=== PATIENT | female | born 1980 | race Caucasian/White ===

== ENCOUNTER 2018-03-31 05:00 | Emergency (ER) | payer OTHER ==
[~2018-03-31] VITALS: Ht 165.1 cm; Wt 55.9 kg
--- NOTE | 2018-03-31 05:08 | NUR ---
PT TAKEN TO BED 12
[2018-03-31 05:13] VITALS: BP 113/80
--- NOTE | 2018-03-31 05:15 | NUR ---
Dr. Caicedo evaluating patient at bedside.
--- NOTE | 2018-03-31 05:30 | NUR ---
PT TO ED WITH C/O VAGINAL BLEEDING AND CRAMPING X 1 DAY. BLEEDING CONTROLLED AT THIS TIME. PT HAS + URINE HCG, . APPROX 7WEEKS GESTATION. NO S/S OF DISTRESS AT THIS TIME. PT PLACED INTO BED, PENDING MD SALAZAR. PMH---DENIES RX---DENIES
[2018-03-31 05:53] LABS: APPEARANCE,URINE SLIGHTLY HAZY (CLEAR); BILIRUBIN,URINE NEGATIVE (NEGATIVE); BLOOD, URINE 2+ (NEGATIVE); COLOR,URINE YELLOW (YELLOW); LEUKOCYTE ESTERASE ,URINE NEGATIVE (NEGATIVE); NITRITE, URINE NEGATIVE (NEGATIVE); UGLUCOSE NEGATIVE (NEGATIVE)
[2018-03-31 05:54] LABS: RBC,URINE NONE SEEN /HPF (0-5); WBC,URINE 0-5 (RARE) /HPF (0-5)
--- NOTE | 2018-03-31 05:59 | NUR ---
PT TAKEN TO ULTRASOUND
[2018-03-31 06:00] LABS: BASOPHILS # (AUTO) 0.1 K/uL (0.00-0.22); BASOPHILS % (AUTO) 0.5 % (0.0-2.0); EOSINOPHILS # (AUTO) 0.2 K/uL (0-0.4); EOSINOPHILS % (AUTO) 1.7 % (0.0-4.0); HEMATOCRIT 38.9 % (36-48); LYMPHOCYTES # (AUTO) 2.8 K/uL (2.5-16.5); LYMPHOCYTES % (AUTO) 28.7 % (20.5-51.1); MEAN CORPUSCULAR HEMOGLOBIN 32 pg (27-31); MEAN CORPUSCULAR HGB CONC 33 g/dL (33-37); MEAN CORPUSCULAR VOLUME 94.7 fL (80-94); MONOCYTES # (AUTO) 0.9 K/uL (0.8-1.0); MONOCYTES % (AUTO) 9.7 % (1.7-9.3); NEUTROPHILS # (AUTO) 5.8 K/uL (1.8-7.7); NEUTROPHILS % (AUTO) 59.4 % (42.2-75.2); PLATELET COUNT (AUTO) 340 K/uL (140-450); RED BLOOD CELL COUNT(AUTO) 4.11 MIL/uL (4.20-5.40); RED CELL DISTRIBUTION WIDTH 13.2 % (11.6-13.7); WHITE BLOOD COUNT (AUTO) 9.7 K/uL (4.8-10.8)
--- NOTE | 2018-03-31 06:25 | NUR ---
PT RETURN FROM ULTRASOUND
--- NOTE | 2018-03-31 06:37 | NUR ---
Patient discharged with v/s stable. Written and verbal after care instructions given and explained. Patient verbalized understanding. Ambulatory with steady gait. All questions addressed prior to discharge. Advised to follow up with PMD.
[2018-03-31 06:44] VITALS: BP 116/69
== END 2018-03-31 06:37 | disposition home or self-care (01) ==
LOC: MED 05:00
DX: O20.8 Other hemorrhage in early pregnancy (principal); Z88.0 Allergy status to penicillin
CPT/HCPCS: 36415; 76817; 81001; 81025; 84702; 85025; 86900; 86901; 99284